=== PATIENT | male | born 1990 | race Caucasian/White ===

== ENCOUNTER 2022-03-30 22:37 | Emergency (ER) | payer SELFPAY ==
[~2022-03-30] VITALS: Ht 175.3 cm; Wt 103.3 kg
[2022-03-30 22:57] VITALS: BP 98/51
[2022-03-30] MEDS ORDERED: KETOROLAC 60MG/2ML VIAL IM ONE (23:15)
[2022-03-30] MEDS ORDERED: BACITRACIN ZINC OINT UDPKT TOP ONE (23:15)
[2022-03-30] MEDS ORDERED: LIDOCAINE HCL/EPINEPHRINE 1%-EPI 1:100,000 20 ML VIAL INFIL ONE (23:15)
[2022-03-30] MEDS ORDERED: TETANUS, DIPHTHERIA, PERTUSSIS VAC/PF 0.5ML (>10YR OLD) IM ONE (23:15)
[2022-03-31 02:39] LABS: CLARITY URINE CLOUDY (CLEAR); COLOR URINE YELLOW (YELLOW); KETONES URINE TRACE (NEGATIVE); LEUKOCYTE ESTERASE URINE NEGATIVE (NEGATIVE); NITRITE URINE NEGATIVE (NEGATIVE); OCCULT BLOOD URINE NEGATIVE (NEGATIVE); PROTEIN URINE NEGATIVE (NEGATIVE); SPECIFIC GRAVITY URINE 1.021 (1.005-1.030); UROBILINOGEN URINE 0.2 E.U./dL (0.2-1.0)
[2022-03-31] MEDS ORDERED: IBUP-2030 MT (03:25)
== END 2022-03-31 04:20 | disposition home or self-care (01) ==
LOC: ER 22:37
DX: S01.01XA Laceration without foreign body of scalp, initial encounter (principal); S20.212A Contusion of left front wall of thorax, initial encounter; V17.0XXA Pedal cycle driver injured in collision with fixed or stationary object in nontraffic accident, initial encounter; Y93.89 Activity, other specified; Y92.488 Other paved roadways as the place of occurrence of the external cause
CPT/HCPCS: 12001; 12013; 70450; 71101; 81003; 93005; 96372; 99285; J1885; J3490

== ENCOUNTER 2022-04-03 09:47 | Emergency (ER) | payer MEDICAID ==
[~2022-04-03] VITALS: Ht 177.8 cm; Wt 100.0 kg
[~2022-04-03 09:47] MED LIST: IBUP-2030 MT
[2022-04-03 09:52] VITALS: BP 129/76
== END 2022-04-03 10:26 | disposition home or self-care (01) ==
LOC: ER 10:00
DX: Z48.00 Encounter for change or removal of nonsurgical wound dressing (principal); S01.01XD Laceration without foreign body of scalp, subsequent encounter; X58.XXXD Exposure to other specified factors, subsequent encounter
CPT/HCPCS: 99281

== ENCOUNTER 2022-04-08 13:09 | Emergency (ER) | payer MEDICAID ==
[~2022-04-08] VITALS: Ht 177.8 cm; Wt 102.0 kg
[2022-04-08 14:46] VITALS: BP 132/58
== END 2022-04-08 15:19 | disposition home or self-care (01) ==
LOC: ER 13:09
DX: Z48.02 Encounter for removal of sutures (principal)
CPT/HCPCS: 99281